=== PATIENT | male | born 1960 | race Caucasian/White ===

== ENCOUNTER 2017-12-22 18:47 | Inpatient (IN) | payer MEDICAID ==
[2017-12-22 18:48] VITALS: BMI 39.9
[2017-12-22] MEDS ORDERED: Iodixanol 320 MG/ML 100 ML BOTTLE IV ONE (18:59)
[2017-12-22 19:09] LABS: BASO # 0.1 K/uL (0.0-0.2); BASO % 0.6 % (0.0-2.0); EOS # 0.3 K/uL (0.0-0.7); EOS % 2.4 % (0.0-4.0); HEMOGLOBIN 12.5 g/dL (12.0-18.0); LYMPH # 4.5 K/uL (1.0-4.3); LYMPH % 36.5 % (20.0-40.0); MEAN CORPUSCULAR HEMOGLOBIN 28.8 pg (27.0-31.0); MEAN CORPUSCULAR HGB CONC 33.1 g/dL (33.0-37.0); MEAN PLATELET VOLUME 9.4 fL (7.2-11.7); MONO # 0.5 K/uL (0.0-0.8); MONO % 4.1 % (0.0-10.0); NEUT % 56.4 % (50.0-75.0); NRBC % 0.1 % (0.0-2.0); RBC 4.35 Mil/uL (4.40-5.90); RED CELL DISTRIBUTION WIDTH 16.1 % (11.5-14.5); WHITE BLOOD COUNT 12.3 K/uL (4.8-10.8)
[2017-12-22 19:16] LABS: INR 1.1; PROTHROMBIN TIME 11.9 SECONDS (9.7-12.2)
[2017-12-22 19:22] LABS: CALCIUM 8.6 mg/dl (8.6-10.4); GFR AFRICAN-AMERICAN > 60; GFR NON-AFRICAN AMERICAN 57; HDL CHOLESTEROL 45 mg/dL (30-70)
[2017-12-22 19:23] LABS: ALBUMIN 3.7 g/dL (3.5-5.0); ALT/SGPT 35 U/L (21-72); AST/SGOT 44 U/L (17-59); BLOOD UREA NITROGEN 21 mg/dL (9-20)
--- NOTE | 2017-12-22 19:30 | CT ---
EXAM: CT Head Without Intravenous Contrast EXAM DATE/TIME: 12/22/2017 6:53 PM CLINICAL HISTORY: 57 years old, male; Signs and symptoms; Numbness / parasthesia; Left; Additional info: Left facial numbness TECHNIQUE: Axial computed tomography images of the head/brain without intravenous contrast. All CT scans at this facility use one or more dose reduction techniques, viz.: automated exposure control; ma/kV adjustment per patient size (including targeted exams where dose is matched to indication; i.e. head); or iterative reconstruction technique. COMPARISON: There are no prior studies for comparison. FINDINGS: Brain: Ventricles are normal in size.. There is no midline shift. There is mild prominence of sulci and gyri. There is patchy decreased attenuation in periventricular white matter. There are no focal masses. There are no focal hemorrhages. Martin-white differentiation is visualized. Ventricles: See above. Bones: Cranial vault is intact. Soft tissues: unremarkable Sinuses: There is no acute sinusitis. Ears and mastoids: Middle ears and mastoids are unremarkable. Orbits: Orbital contents are unremarkable. IMPRESSION: No acute intracranial abnormality
[2017-12-22 19:32] LABS: LDL CHOLESTEROL 161 mg/dL (0-129)
--- NOTE | 2017-12-22 20:41 | C.PDOC ---
History Of Present Illness 57 year old male presents to the ED complaining of left-sided chest pain, on and off since 2AM last night, associated with sharp, shooting pain down his left shoulder, arm, and hand. Also complaining of left arm numbness with occasional left facial numbness. No focal weakness, slurred speech, confusion, difficulty ambulating, or visual changes. Patient reports fever with Tmax of 101 at home yesterday, with coughing and some difficulty breathing. Past medical history is significant for hypertension, diabetes and asthma. Patient reportedly had angina type chest pain 4 years ago and was prescribed Nitro at that time, however he denies history of heart attack to his knowledge. Patient took Nitro earlier as well as baby aspirin. PMD: provider TBD Time Seen by Provider: 12/22/17 19:02 Chief Complaint (Nursing): Chest Pain History Per: Patient History/Exam Limitations: no limitations Onset/Duration Of Symptoms: Hrs (since 2AM) Current Symptoms Are (Timing): Better Quality: Sharp Past Medical History Reviewed: Historical Data, Nursing Documentation, Vital Signs Vital Signs: Last Vital Signs Temp 97.9 F 12/22/17 23:40 Pulse 56 L 12/22/17 23:40 Resp 20 12/22/17 23:40 BP 111/74 12/22/17 23:40 Pulse Ox 97 12/22/17 23:40 - Medical History PMH: Asthma, COPD, Diabetes, HTN, Hypercholesterolemia Family History: States: No Known Family Hx - Social History Hx Alcohol Use: No Hx Substance Use: No Review Of Systems Except As Marked, All Systems Reviewed And Found Negative. Constitutional: Positive for: Fever Eyes: Negative for: Vision Change Cardiovascular: Positive for: Chest Pain Respiratory: Positive for: Cough, Shortness of Breath Musculoskeletal: Positive for: Arm Pain (left) Neurological: Positive for: Numbness (to left arm and face). Negative for: Weakness, Incoordination, Change in Speech, Headache, Dizziness Physical Exam - Physical Exam Appears: Non-toxic, No Acute Distress Skin: Normal Color, Warm, Dry Head: Atraumatic, Normacephalic Eye(s): bilateral: Normal Inspection, PERRL, EOMI Nose: Normal Oral Mucosa: Moist Neck: Normal ROM, Supple Chest: Symmetrical, No Tenderness Cardiovascular: Rhythm Regular (with regular rate, no ectopic beats noted), No Murmur, Other (S1,S2 within normal limits) Respiratory: Normal Breath Sounds, No Accessory Muscle Use, No Rales, No Rhonchi , No Wheezing Gastrointestinal/Abdominal: Soft, No Tenderness, No Distention Extremity: Bilateral: Atraumatic, No Pedal Edema, Normal ROM Neurological/Psych: Oriented x3, Normal Speech, Normal Cranial Nerves (CN 2-12 intact), Normal Motor (strength is 5/5 throughout), Normal Sensation, No Other ( focal deficits) Other Neurological Findings: No Facial Palsy Extremity: Right: No Drift, Left: No Drift ED Course And Treatment - Laboratory Results Result Diagrams: 12/22/17 19:05 12/22/17 19:05 Lab Interpretation: Normal ECG: Interpreted By Me, Viewed By Me ECG Rhythm: Sinus Rhythm (at 62 bpm, no acute ST/T wave changes, no ectopy) O2 Sat by Pulse Oximetry: 99 (RA) Pulse Ox Interpretation: Normal - CT Scan/US CT head Other Rad Studies (CT/US): Read By Radiologist, Radiology Report Reviewed CT/US Interpretation: FINDINGS: Brain: Ventricles are normal in size.. There is no midline shift. There is. mild prominence of sulci and gyri. There is patchy decreased attenuation in. periventricular white matter. There are no focal masses. There are no focal. hemorrhages. Martin-white differentiation is visualized. Ventricles: See above. Bones: Cranial vault is intact. Soft tissues: unremarkable. Sinuses: There is no acute sinusitis. Ears and mastoids: Middle ears and mastoids are unremarkable. Orbits: Orbital contents are unremarkable. . IMPRESSION: No acute intracranial abnormality NIHSS Stroke Scale - Date/Time Evaluation Performed Date Performed: 12/22/17 Time Performed: 19:00 When Was NIHSS Performed: Baseline - How Severe is the Stoke Level of Consciousness: 0=Alert LOC to Questions: 0=Both comments correct LOC to commands: 0=Obeys both correctly Best Gaze: 0=Normal Visual: 0=No visual loss Facial: 0=Normal Motor Arm - Left: 0=No drift Motor Arm - Right: 0=No drift Motor Leg - Left: 0=No drift Motor Leg - Right: 0=No drift Limb Ataxia: 0=Absent Sensory: 0=Normal Best Language: 0=No aphasia Dysarthia: 0=Normal articulation Extinction & Inattention (Neglect): 0=Normal, no object Score: 0 Severity Of Stroke: 0= No Stroke Medical Decision Making Medical Decision Making: Impression: Atypical chest pain Time: 18:53 Initial Plan: --EKG --Blood type and screen --Troponin I --Lipid panel --Hb a1c --CMP --CBC w/ differential --PTT --Prothrombin time --Chest x-ray --CT Head W/O contrast --Reevaluation Code Stroke was initially called, but cancelled. 20:45 Labs unremarkable, will admit for obs given risk factors. Discussed case w/ Dr. Silvio Barone, who accepts patient for admission Disposition Discussed With DrNieves: Francesca Barone Doctor Will See Patient In The: Hospital Counseled Patient/Family Regarding: Studies Performed, Diagnosis - Disposition Disposition: HOSPITALIZED Disposition Time: 20:47 Condition: FAIR - POA Core Measure Indicators: Chest Pain - Clinical Impression Clinical Impression: Chest pain - Scribe Statement The provider has reviewed the documentation as recorded by the Scribe (Jailyn Mayer) Provider Attestation: All medical record entries made by the Scribe were at my direction and personally dictated by me. I have reviewed the chart and agree that the record accurately reflects my personal performance of the history, physical exam, medical decision making, and the department course for this patient. I have also personally directed, reviewed, and agree with the discharge instructions and disposition. Decision To Admit - Pt Status Changed To: Hospital Disposition Of: Observation - . Bed Request Type: Telemetry Patient Diagnosis: Chest pain
--- NOTE | 2017-12-22 20:44 | C.PDOC ---
Time Seen by Provider: 12/22/17 19:02 Chief Complaint (Nursing): Chest Pain Past Medical History Vital Signs: Last Vital Signs Temp 98 F 12/22/17 20:28 Pulse 87 12/22/17 20:28 Resp 18 12/22/17 20:28 BP 145/86 12/22/17 20:28 Pulse Ox 99 12/22/17 20:28 - Medical History PMH: Asthma, COPD, Diabetes, HTN, Hypercholesterolemia - Social History Hx Alcohol Use: No Hx Substance Use: No ED Course And Treatment - Laboratory Results Result Diagrams: 12/22/17 19:05 12/22/17 19:05 O2 Sat by Pulse Oximetry: 99 Disposition - Disposition
[2017-12-22 21:52] VITALS: RESP 20
[2017-12-22] MEDS ORDERED: Sod Polystyrene Sulf 15 gm/60 ml Susp PO ONE (22:41)
[2017-12-23 03:39] LABS: CK-MB 0.43 ng/mL (0.0-3.38)
[2017-12-23] MEDS: Levothyroxine 88 MCG TAB PO SCH (06:29)
[2017-12-23] MEDS: (Novolog) Insulin Aspart, Recombinant 100 u/ml 10 ml vial SC SCH ×4 (07:42→22:40)
[2017-12-23 08:23] LABS: BASO # 0.1 K/uL (0.0-0.2); BASO % 0.9 % (0.0-2.0); EOS # 0.2 K/uL (0.0-0.7); EOS % 2.9 % (0.0-4.0); HEMOGLOBIN 11.5 g/dL (12.0-18.0); LYMPH # 2.8 K/uL (1.0-4.3); LYMPH % 36.5 % (20.0-40.0); MEAN CORPUSCULAR HEMOGLOBIN 28.8 pg (27.0-31.0); MEAN CORPUSCULAR HGB CONC 33.1 g/dL (33.0-37.0); MEAN PLATELET VOLUME 10.1 fL (7.2-11.7); MONO # 0.4 K/uL (0.0-0.8); MONO % 5.2 % (0.0-10.0); NEUT # 4.1 K/uL (1.8-7.0); NEUT % 54.5 % (50.0-75.0); NRBC % 0.1 % (0.0-2.0); RED CELL DISTRIBUTION WIDTH 15.9 % (11.5-14.5); WHITE BLOOD COUNT 7.6 K/uL (4.8-10.8)
[2017-12-23 08:44] LABS: ALBUMIN 3.1 g/dL (3.5-5.0); ALT/SGPT 31 U/L (21-72); AST/SGOT 32 U/L (17-59); BLOOD UREA NITROGEN 17 mg/dL (9-20); CALCIUM 8.3 mg/dl (8.6-10.4); GFR AFRICAN-AMERICAN > 60; GFR NON-AFRICAN AMERICAN > 60
--- NOTE | 2017-12-23 09:00 | RAD ---
HISTORY: Code Stroke COMPARISON: No prior. FINDINGS: LUNGS: No active pulmonary disease. PLEURA: No significant pleural effusion identified, no pneumothorax apparent. CARDIOVASCULAR: Normal. OSSEOUS STRUCTURES: No significant abnormalities. VISUALIZED UPPER ABDOMEN: Normal. OTHER FINDINGS: None. IMPRESSION: No active disease.
[2017-12-23] MEDS: Pantoprazole 40 mg EC Tab PO SCH (10:16)
[2017-12-23] MEDS: GlipiZIDE 10 mg SR Tab PO SCH (10:17)
[2017-12-23] MEDS: Enoxaparin 60 mg Syringe SC SCH (10:31)
--- NOTE | 2017-12-23 11:26 | CP.PCM.CON ---
<Ramon Thakur - Last Filed: 12/23/17 13:43> History of Present Illness - History of Present Illness History of Present Illness: PGY2 Cardiology Progress Note for Dr. Eddy This 57 year old male presents to the ED on 12/22/17 c/o L-sided chest pain, on and off since 2AM last night, associated with sharp, shooting pain down his left shoulder, arm, and hand. Also complaining of left arm numbness with occasional left facial numbness. No focal weakness, slurred speech, confusion, difficulty ambulating, or visual changes. Patient reports fever with Tmax of 101 at home yesterday, with coughing and some difficulty breathing. Past medical history is significant for hypertension, diabetes and asthma. Patient reportedly had angina type chest pain 4 years ago and was prescribed Nitro at that time, however he denies history of heart attack to his knowledge. Patient took Nitro earlier as well as baby aspirin. Cardiology consulted 2/2 chest pain. Patient seen and examined at bedside this AM. No acute distress. He admits to continued L chest pain with deep inspiration. He states his legs were swollen last night, although that has since resolved. He also notes that his legs intermitently swell when he walks half a block, and he takes HCTZ PRN for these symptoms. PMD: Dr. Gerardo PMH: Asthma, COPD, Diabetes, HTN, HLD, Hypothyroidism PSHx: denies Meds- see emr Famhx- Mom: DM, HTN; Dad: CVA; Brother: of [place] at 62yo Review of Systems: -Gen: denies fever, chills, headache, lethargy, weakness. -HEENT: denies dizziness, change in vision, change in hearing, sore throat, dysphagia, nasal congestion, mucous. -Cardio: denies chest pain, palpitations, orthopnea; +lower extremity edema -Resp: denies cough, dyspnea, hemoptysis, wheezing; +pain on inspiration. -GI: denies abdominal pain, nausea/vomiting, diarrhea/constipation, hematochezia , hematemesis. -: denies dysuria, urinary freq, incontinence, hematuria, change in urinary stream. -MSK: denies back pain, muscle weakness, radiating pain. -Skin: denies itching, rash, lesions. -Neuro: denies confusion, numbness, tingling, focal weakness, radicular pain, syncope. -Psych: denies anxiety, depression, H/I, S/I, hallucinations. Past Patient History - Past Social History Smoking Status: Unknown If Ever Smoked - CARDIAC Hx Hypercholesterolemia: Yes Hx Hypertension: Yes - PULMONARY Hx Asthma: Yes Hx Chronic Obstructive Pulmonary Disease (COPD): Yes - PSYCHIATRIC Hx Substance Use: No Meds Allergies/Adverse Reactions: Allergies Allergy/AdvReac Type Severity Reaction Status Date / Time No Known Allergies Allergy Verified 12/22/17 18:54 - Medications Medications: Current Medications Allopurinol (Zyloprim) 300 mg PO DAILY [facility] Last Admin: 12/23/17 10:16 Dose: 300 mg Amlodipine Besylate (Norvasc) 5 mg PO DAILY [facility] Last Admin: 12/23/17 10:18 Dose: 5 mg Aspirin (Aspirin) 325 mg PO DAILY [facility] Last Admin: 12/23/17 10:16 Dose: 325 mg Atenolol (Tenormin) 100 mg PO DAILY [facility] Last Admin: 12/23/17 10:16 Dose: 100 mg Clopidogrel Bisulfate (Plavix) 75 mg PO DAILY [facility] Last Admin: 12/23/17 10:16 Dose: 75 mg Ezetimibe (Zetia) 10 mg PO DAILY [facility] Last Admin: 12/23/17 10:16 Dose: 10 mg Enoxaparin Sodium (Lovenox) 40 mg SC DAILY [facility] Last Admin: 12/23/17 10:31 Dose: 40 mg Gemfibrozil (Lopid) 600 mg PO DAILY [facility] Last Admin: 12/23/17 10:16 Dose: 600 mg Glipizide (Glucotrol Xl) 10 mg PO DAILY [facility] Last Admin: 12/23/17 10:17 Dose: Not Given Insulin Aspart (Novolog) 0 unit SC [facility] PRN Reason: Protocol Last Admin: 12/23/17 07:42 Dose: Not Given Levothyroxine Sodium (Synthroid) 88 mcg PO DAILY@0630 [facility] Last Admin: 12/23/17 06:29 Dose: 88 mcg Loratadine (Claritin) 10 mg PO DAILY [facility] Last Admin: 12/23/17 10:16 Dose: 10 mg Losartan Potassium (Cozaar) 50 mg PO DAILY [facility] Last Admin: 12/23/17 10:16 Dose: 50 mg Metformin HCl (Glucophage) 1,000 mg PO BID [facility] Last Admin: 12/23/17 10:17 Dose: Not Given Montelukast Sodium (Singulair) 10 mg PO [facility] Pantoprazole Sodium (Protonix Ec Tab) 40 mg PO DAILY [facility] Last Admin: 12/23/17 10:16 Dose: 40 mg Physical Exam - Additional Findings Additional findings: Appears: Non-toxic, No Acute Distress Skin: Normal Color, Warm, Dry Head: Atraumatic, Normacephalic Eye(s): bilateral: Normal Inspection, PERRL, EOMI Nose: Normal Oral Mucosa: Moist Neck: Normal ROM, Supple Chest: Symmetrical, No Tenderness (to palpation), +L chest pain with deep inspiration Cardiovascular: Rhythm Regular (and regular rate), No Murmur, S1, S2 Respiratory: Normal Breath Sounds, No Accessory Muscle Use, No Rales, No Rhonchi , No Wheezing Gastrointestinal/Abdominal: Soft, No Tenderness, No Distention Extremity: Bilateral: Atraumatic, No Pedal Edema, Normal ROM Neurological/Psych: Oriented x3, Normal Speech, CN 2-12 intact, Normal Motor ( strength is 5/5 throughout) Results - Vital Signs Recent Vital Signs: Last Vital Signs Temp 98.1 F 12/23/17 07:30 Pulse 54 L 12/23/17 07:30 Resp 20 12/23/17 07:30 BP 114/68 12/23/17 07:30 Pulse Ox 98 12/23/17 07:30 - Labs Result Diagrams: 12/23/17 08:06 12/23/17 08:06 Labs: Laboratory Results - last 24 hr 12/22/17 12/22/17 12/22/17 19:05 19:05 19:05 WBC 12.3 H RBC 4.35 L Hgb 12.5 Hct 37.9 MCV 87.0 MCH 28.8 MCHC 33.1 RDW 16.1 H Plt Count 351 MPV 9.4 Neut % (Auto) 56.4 Lymph % (Auto) 36.5 [place] % (Auto) 4.1 Eos % (Auto) 2.4 Baso % (Auto) 0.6 Neut # (Auto) 7.0 Lymph # (Auto) 4.5 H [place] # (Auto) 0.5 Eos # (Auto) 0.3 Baso # (Auto) 0.1 PT 11.9 INR 1.1 APTT 34 Sodium 142 Potassium 5.6 H Chloride 109 H Carbon Dioxide 22 Anion Gap 17 BUN 21 H Creatinine 1.3 Est GFR ( Amer) > 60 Est GFR (Non-Af Amer) 57 POC Glucose (mg/dL) Random Glucose 95 Hemoglobin A1c Calcium 8.6 Total Bilirubin 0.6 AST 44 ALT 35 Alkaline Phosphatase 39 Total Creatine Kinase CK-MB (Mass) Troponin I < 0.0120 Total Protein 7.4 Albumin 3.7 Globulin 3.7 Albumin/Globulin Ratio 1.0 Triglycerides 231 H D Cholesterol 219 H LDL Cholesterol Direct 161 H HDL Cholesterol 45 Blood Type Antibody Screen 12/22/17 12/22/17 12/22/17 19:05 19:59 21:28 WBC RBC Hgb Hct MCV MCH MCHC RDW Plt Count MPV Neut % (Auto) Lymph % (Auto) [place] % (Auto) Eos % (Auto) Baso % (Auto) Neut # (Auto) Lymph # (Auto) [place] # (Auto) Eos # (Auto) Baso # (Auto) PT INR APTT Sodium Potassium Chloride Carbon Dioxide Anion Gap BUN Creatinine Est GFR ( Amer) Est GFR (Non-Af Amer) POC Glucose (mg/dL) 106 Random Glucose Hemoglobin A1c 6.4 Calcium Total Bilirubin AST ALT Alkaline Phosphatase Total Creatine Kinase CK-MB (Mass) Troponin I Total Protein Albumin Globulin Albumin/Globulin Ratio Triglycerides Cholesterol LDL Cholesterol Direct HDL Cholesterol Blood Type O POSITIVE Antibody Screen Negative 12/23/17 12/23/17 12/23/17 03:11 06:31 08:06 WBC 7.6 RBC 4.00 L Hgb 11.5 L Hct 34.8 L MCV 87.0 MCH 28.8 MCHC 33.1 RDW 15.9 H Plt Count 269 MPV 10.1 Neut % (Auto) 54.5 Lymph % (Auto) 36.5 [place] % (Auto) 5.2 Eos % (Auto) 2.9 Baso % (Auto) 0.9 Neut # (Auto) 4.1 Lymph # (Auto) 2.8 [place] # (Auto) 0.4 Eos # (Auto) 0.2 Baso # (Auto) 0.1 PT INR APTT Sodium Potassium Chloride Carbon Dioxide Anion Gap BUN Creatinine Est GFR ( Amer) Est GFR (Non-Af Amer) POC Glucose (mg/dL) 79 Random Glucose Hemoglobin A1c Calcium Total Bilirubin AST ALT Alkaline Phosphatase Total Creatine Kinase 31 L CK-MB (Mass) 0.43 Troponin I < 0.0120 Total Protein Albumin Globulin Albumin/Globulin Ratio Triglycerides Cholesterol LDL Cholesterol Direct HDL Cholesterol Blood Type Antibody Screen 12/23/17 08:06 WBC RBC Hgb Hct MCV MCH MCHC RDW Plt Count MPV Neut % (Auto) Lymph % (Auto) [place] % (Auto) Eos % (Auto) Baso % (Auto) Neut # (Auto) Lymph # (Auto) [place] # (Auto) Eos # (Auto) Baso # (Auto) PT INR APTT Sodium 141 Potassium 4.1 Chloride 108 H Carbon Dioxide 22 Anion Gap 15 BUN 17 Creatinine 1.2 Est GFR ( Amer) > 60 Est GFR (Non-Af Amer) > 60 POC Glucose (mg/dL) Random Glucose 140 H Hemoglobin A1c Calcium 8.3 L Total Bilirubin 0.1 L AST 32 ALT 31 Alkaline Phosphatase 45 Total Creatine Kinase CK-MB (Mass) Troponin I Total Protein 6.1 L Albumin 3.1 L Globulin 3.0 Albumin/Globulin Ratio 1.0 Triglycerides Cholesterol LDL Cholesterol Direct HDL Cholesterol Blood Type Antibody Screen Assessment & Plan - Assessment and Plan (Free Text) Assessment: Chest Pain 12/23: Lexiscan nuclear stress test in AM Echo in AM NPO after Midnight Neuro Consult, Dr. Matthew, f/u recs (family hx of CVA) troponins negative Head CT negative CXR negative Continue ASA, Atenolol, Losartan BP 114/68 HR 54 f/u EKG 2014 perfusion study performed for similar sx's, showing EF 66% with good exercise/work capacity. Case Discussed with Dr. Surjit Thakur, PGY2 - Date & Time Date: 12/23/17 Time: 11:21 <Caleb Eddy - Last Filed: 12/24/17 09:09> Meds - Medications Medications: Current Medications Albuterol (Ventolin Hfa 90 Mcg/Actuation (8 G)) 2 puff INH RQ4 PRN PRN Reason: Shortness of Breath Albuterol/Ipratropium (Duoneb 3 Mg/0.5 Mg (3 Ml) Ud) 3 ml INH RQ6 PRN PRN Reason: Shortness of Breath Last Admin: 12/24/17 08:18 Dose: 3 ml Allopurinol (Zyloprim) 300 mg PO DAILY [facility] Last Admin: 12/23/17 10:16 Dose: 300 mg Amlodipine Besylate (Norvasc) 5 mg PO DAILY [facility] Last Admin: 12/23/17 10:18 Dose: 5 mg Aspirin (Aspirin) 325 mg PO DAILY [facility] Last Admin: 12/23/17 10:16 Dose: 325 mg Atenolol (Tenormin) 100 mg PO DAILY [facility] Last Admin: 12/23/17 10:16 Dose: 100 mg Clopidogrel Bisulfate (Plavix) 75 mg PO DAILY [facility] Last Admin: 12/23/17 10:16 Dose: 75 mg Ezetimibe (Zetia) 10 mg PO DAILY [facility] Last Admin: 12/23/17 10:16 Dose: 10 mg Enoxaparin Sodium (Lovenox) 40 mg SC DAILY [facility] Last Admin: 12/23/17 10:31 Dose: 40 mg Gemfibrozil (Lopid) 600 mg PO DAILY [facility] Last Admin: 12/23/17 10:16 Dose: 600 mg Glipizide (Glucotrol Xl) 10 mg PO DAILY [facility] Last Admin: 12/23/17 10:17 Dose: Not Given Insulin Aspart (Novolog) 0 unit SC [facility] PRN Reason: Protocol Last Admin: 12/24/17 07:17 Dose: Not Given Levothyroxine Sodium (Synthroid) 88 mcg PO DAILY@0630 [facility] Last Admin: 12/24/17 06:37 Dose: 88 mcg Loratadine (Claritin) 10 mg PO DAILY [facility] Last Admin: 12/23/17 10:16 Dose: 10 mg Losartan Potassium (Cozaar) 50 mg PO DAILY [facility] Last Admin: 12/23/17 10:16 Dose: 50 mg Metformin HCl (Glucophage) 1,000 mg PO BID [facility] Last Admin: 12/23/17 18:20 Dose: 1,000 mg Montelukast Sodium (Singulair) 10 mg PO HS [facility] Last Admin: 12/23/17 22:04 Dose: 10 mg Pantoprazole Sodium (Protonix Ec Tab) 40 mg PO DAILY [facility] Last Admin: 12/23/17 10:16 Dose: 40 mg Fluticasone/Salmeterol (Advair Diskus 500/50) 1 puff INH RQ12 [facility] Last Admin: 12/24/17 08:18 Dose: Not Given Results - Vital Signs Recent Vital Signs: Last Vital Signs Temp 97.7 F 12/24/17 08:18 Pulse 56 L 12/24/17 08:18 Resp 20 12/24/17 08:18 BP 147/79 12/24/17 08:18 Pulse Ox 97 12/24/17 08:18 - Labs Result Diagrams: 12/24/17 07:14 12/24/17 07:14 Labs: Laboratory Results - last 24 hr 12/22/17 12/23/17 12/23/17 19:04 11:29 11:45 WBC RBC Hgb Hct MCV MCH MCHC RDW Plt Count MPV Neut % (Auto) Lymph % (Auto) [place] % (Auto) Eos % (Auto) Baso % (Auto) Neut # (Auto) Lymph # (Auto) [place] # (Auto) Eos # (Auto) Baso # (Auto) Sodium Potassium Chloride Carbon Dioxide Anion Gap BUN Creatinine Est GFR ( Amer) Est GFR (Non-Af Amer) POC Glucose (mg/dL) 95 88 Random Glucose Hemoglobin A1c Calcium Total Bilirubin AST ALT Alkaline Phosphatase Total Creatine Kinase 37 L CK-MB (Mass) 0.42 Troponin I < 0.0120 C-React Prot High Sens Total Protein Albumin Globulin Albumin/Globulin Ratio Triglycerides Cholesterol LDL Cholesterol Direct HDL Cholesterol Vitamin B12 Free T4 TSH 3rd Generation 12/23/17 12/23/17 12/24/17 17:12 21:18 06:28 WBC RBC Hgb Hct MCV MCH MCHC RDW Plt Count MPV Neut % (Auto) Lymph % (Auto) [place] % (Auto) Eos % (Auto) Baso % (Auto) Neut # (Auto) Lymph # (Auto) [place] # (Auto) Eos # (Auto) Baso # (Auto) Sodium Potassium Chloride Carbon Dioxide Anion Gap BUN Creatinine Est GFR ( Amer) Est GFR (Non-Af Amer) POC Glucose (mg/dL) 103 91 86 Random Glucose Hemoglobin A1c Calcium Total Bilirubin AST ALT Alkaline Phosphatase Total Creatine Kinase CK-MB (Mass) Troponin I C-React Prot High Sens Total Protein Albumin Globulin Albumin/Globulin Ratio Triglycerides Cholesterol LDL Cholesterol Direct HDL Cholesterol Vitamin B12 Free T4 TSH 3rd Generation 12/24/17 12/24/17 12/24/17 07:14 07:14 07:14 WBC 7.9 RBC 4.03 L Hgb 11.7 L Hct 35.0 MCV 86.8 MCH 29.0 MCHC 33.4 RDW 15.9 H Plt Count 275 MPV 9.7 Neut % (Auto) 57.4 Lymph % (Auto) 34.1 [place] % (Auto) 4.8 Eos % (Auto) 3.2 Baso % (Auto) 0.5 Neut # (Auto) 4.5 Lymph # (Auto) 2.7 [place] # (Auto) 0.4 Eos # (Auto) 0.2 Baso # (Auto) 0.0 Sodium 141 Potassium 4.0 Chloride 109 H Carbon Dioxide 23 Anion Gap 13 BUN 18 Creatinine 1.1 Est GFR ( Amer) > 60 Est GFR (Non-Af Amer) > 60 POC Glucose (mg/dL) Random Glucose 100 Hemoglobin A1c 6.4 Calcium 8.6 Total Bilirubin 0.2 AST 26 ALT 29 Alkaline Phosphatase 46 Total Creatine Kinase CK-MB (Mass) Troponin I C-React Prot High Sens Total Protein 6.1 L Albumin 3.1 L Globulin 3.0 Albumin/Globulin Ratio 1.0 Triglycerides 163 H D Cholesterol 160 LDL Cholesterol Direct 91 HDL Cholesterol 37 Vitamin B12 778 Free T4 TSH 3rd Generation 2.17 12/24/17 07:14 WBC RBC Hgb Hct MCV MCH MCHC RDW Plt Count MPV Neut % (Auto) Lymph % (Auto) [place] % (Auto) Eos % (Auto) Baso % (Auto) Neut # (Auto) Lymph # (Auto) [place] # (Auto) Eos # (Auto) Baso # (Auto) Sodium Potassium Chloride Carbon Dioxide Anion Gap BUN Creatinine Est GFR ( Amer) Est GFR (Non-Af Amer) POC Glucose (mg/dL) Random Glucose Hemoglobin A1c Calcium Total Bilirubin AST ALT Alkaline Phosphatase Total Creatine Kinase CK-MB (Mass) Troponin I C-React Prot High Sens 3.93 H Total Protein Albumin Globulin Albumin/Globulin Ratio Triglycerides Cholesterol LDL Cholesterol Direct HDL Cholesterol Vitamin B12 Free T4 1.00 TSH 3rd Generation Assessment & Plan - Assessment and Plan (Free Text) Assessment: Patient seen and personally evaluated by me. Plan of care d/w the resident and as documented
[2017-12-23 12:18] LABS: CK-MB 0.42 ng/mL (0.0-3.38)
--- NOTE | 2017-12-23 16:04 | CP.PCM.PN ---
Subjective - Date & Time of Evaluation Date of Evaluation: 12/23/17 Time of Evaluation: 16:01 - Subjective Subjective: Progress Note for Dr. Gerardo's Service Patient seen and examined at bedside. He states that he arrived to the hospital last night with c/o CP associated with numbness and tingling in the left arm and left side of the face. He states that it went away initially when he arrived at the hospital last night but continued to have episodic events throughout the night. He denies any symptoms currently. He denies focal weaknesses at any point. No slurred speech. He has a vague complaint of fevers but states that these have not been present for >24hrs. Objective - Vital Signs/Intake and Output Vital Signs (last 24 hours): Temp Pulse Resp BP Pulse Ox 98.1 F 56 L 20 114/68 98 12/23/17 07:30 12/23/17 15:55 12/23/17 07:30 12/23/17 07:30 12/23/17 07:30 - Medications Medications: Current Medications Albuterol/Ipratropium (Duoneb 3 Mg/0.5 Mg (3 Ml) Ud) 3 ml INH RQ6 PRN PRN Reason: Shortness of Breath Allopurinol (Zyloprim) 300 mg PO DAILY [facility] Last Admin: 12/23/17 10:16 Dose: 300 mg Amlodipine Besylate (Norvasc) 5 mg PO DAILY [facility] Last Admin: 12/23/17 10:18 Dose: 5 mg Aspirin (Aspirin) 325 mg PO DAILY [facility] Last Admin: 12/23/17 10:16 Dose: 325 mg Atenolol (Tenormin) 100 mg PO DAILY [facility] Last Admin: 12/23/17 10:16 Dose: 100 mg Clopidogrel Bisulfate (Plavix) 75 mg PO DAILY [facility] Last Admin: 12/23/17 10:16 Dose: 75 mg Ezetimibe (Zetia) 10 mg PO DAILY [facility] Last Admin: 12/23/17 10:16 Dose: 10 mg Enoxaparin Sodium (Lovenox) 40 mg SC DAILY [facility] Last Admin: 12/23/17 10:31 Dose: 40 mg Gemfibrozil (Lopid) 600 mg PO DAILY [facility] Last Admin: 12/23/17 10:16 Dose: 600 mg Glipizide (Glucotrol Xl) 10 mg PO DAILY [facility] Last Admin: 12/23/17 10:17 Dose: Not Given Insulin Aspart (Novolog) 0 unit SC ACHS [facility] PRN Reason: Protocol Last Admin: 12/23/17 12:18 Dose: Not Given Levothyroxine Sodium (Synthroid) 88 mcg PO DAILY@0630 [facility] Last Admin: 12/23/17 06:29 Dose: 88 mcg Loratadine (Claritin) 10 mg PO DAILY [facility] Last Admin: 12/23/17 10:16 Dose: 10 mg Losartan Potassium (Cozaar) 50 mg PO DAILY [facility] Last Admin: 12/23/17 10:16 Dose: 50 mg Metformin HCl (Glucophage) 1,000 mg PO BID [facility] Last Admin: 12/23/17 10:17 Dose: Not Given Montelukast Sodium (Singulair) 10 mg PO [facility] Pantoprazole Sodium (Protonix Ec Tab) 40 mg PO DAILY [facility] Last Admin: 12/23/17 10:16 Dose: 40 mg - Labs Labs: 12/23/17 08:06 12/23/17 08:06 PT 11.9 SECONDS (9.7-12.2) 12/22/17 19:05 INR 1.1 12/22/17 19:05 APTT 34 SECONDS (21-34) 12/22/17 19:05 - Constitutional Appears: No Acute Distress - Head Exam Head Exam: ATRAUMATIC, NORMOCEPHALIC - Eye Exam Eye Exam: EOMI, Normal appearance - ENT Exam ENT Exam: Mucous Membranes Moist - Respiratory Exam Respiratory Exam: Clear to Ausculation Bilateral, NORMAL BREATHING PATTERN - Cardiovascular Exam Cardiovascular Exam: REGULAR RHYTHM, +S1, +S2 - GI/Abdominal Exam GI & Abdominal Exam: Soft. absent: Tenderness - Extremities Exam Extremities Exam: absent: Calf Tenderness, Pedal Edema - Neurological Exam Neurological Exam: Alert, Awake, Oriented x3 - Psychiatric Exam Psychiatric exam: Normal Affect, Normal Mood - Skin Skin Exam: Dry, Warm Assessment and Plan - Assessment and Plan (Free Text) Plan: Chest Pain Cardio consult place- Dr. Eddy- Micaela appreciated Lexiscan nuclear stress test in AM Echo in AM NPO after Midnight Neuro Consult requested by Dr. Eddy for Dr. Matthew given risk factor of family hx of CVA Echo 01/2017- LVEF 70% Exercise stress 01/2017- pt unable to complete due to fatigue Holter monitor 01/2017- sinus rhythm Trops negative x3 EKG prelim reading is NSR; no acute ST changes- follow up official read Head CT negative CXR no acute changes ASA 325mg PO daily Atenolol 100mg PO daily Losartan 50mg PO daily Amlodipine 5mg PO daily Plavix 75mg PO daily HTN Atenolol 100mg PO daily Losartan 50mg PO daily Amlodipine 5mg PO daily Mixed dyslipidemia Zetia 10mg PO daily Gemfibrozil 600mg PO daily follow up lipid panel Diabetes Glipizide 10mg PO daily ISS metformin 1g PO BID Singulair 10mg PO qhs follow up A1C Hypothyroidism levothyroxine 88mcg PO daily Follow up tsh/t4 Asthma Loratadine 10mg PO daily PPX Lovenox 40mg SC daily Protonix 40mg PO daily Case discussed with Dr. Gerardo All management as per Dr. Gerardo
--- NOTE | 2017-12-23 18:42 | CARD ---
APPROVED REPORT EXAM: Two-dimensional and M-mode echocardiogram with Doppler and color Doppler. Other Information Quality : GoodRhythm : INDICATION Chest Pain 2D DIMENSIONS IVSd1.2 (0.7-1.1cm)LVDd4.4 (3.9-5.9cm) PWd1.2 (0.7-1.1cm)LVDs2.9 (2.5-4.0cm) FS (%) 34.6 %LVEF (%)64.0 (>50%) M-Mode DIMENSIONS RVDd2.56 (2.1-3.2cm)Left Atrium (MM)4.05 (2.5-4.0cm) IVSd1.26 (0.7-1.1cm)Aortic Root3.07 (2.2-3.7cm) LVDd5.16 (4.0-5.6cm)Aortic Cusp Exc.2.09 (1.5-2.0cm) PWd1.00 (0.7-1.1cm)FS (%) 42 % LVDs2.99 (2.0-3.8cm)LVEF (%)73 (>50%) Mitral Valve MV E Lvhriuim08.8cm/sMV A Lmrhuaqd53.4cm/sE/A ratio0.9 TDI E/Lateral E'0.0E/Medial E'0.0 Tricuspid Valve TR Peak Cpoifdod728qa/sTR Peak Gr.[id number] LEFT VENTRICLE The left ventricle is normal size. There is normal left ventricular wall thickness. The left ventricular function is normal. The left ventricular ejection fraction is within the normal range. About 65% No regional wall motion abnormalities noted. The left ventricular diastolic function is indetermiate. No left ventricle thrombus noted on this study. There is no ventricular septal defect visualized. There is no left ventricular aneurysm. There is no mass noted in the left ventricle. RIGHT VENTRICLE The right ventricle is normal size. There is normal right ventricular wall thickness. The right ventricular systolic function is normal. ATRIA The left atrium size is normal. The right atrium size is normal. The interatrial septum is intact with no evidence for an atrial septal defect. AORTIC VALVE The aortic valve is normal in structure and function. No aortic regurgitation is present. There is no aortic valvular stenosis. There is no aortic valvular vegetation. MITRAL VALVE The mitral valve is normal in structure and function. There is no evidence of mitral valve prolapse. There is no mitral valve stenosis. There is no mitral valve regurgitation noted. TRICUSPID VALVE The tricuspid valve is normal in structure and function. There is mild tricuspid valve regurgitation noted. Estimated PA systolic pressure is 39 mm Hg. There is no tricuspid valve prolapse or vegetation. There is no tricuspid valve stenosis. PULMONIC VALVE The pulmonary valve is normal in structure and function. There is no pulmonic valvular regurgitation. There is no pulmonic valvular stenosis. GREAT VESSELS The aortic root is normal in size. The ascending aorta is normal in size. The pulmonary artery is normal. The IVC is normal in size and collapses >50% with inspiration. PERICARDIAL EFFUSION The pericardium appears normal. There is no pleural effusion. <Conclusion> Normal LV systolic function and wall motion. Mild pulmonary HTN. Normal Doppler.
--- NOTE | 2017-12-23 18:54 | CP.PCM.CON ---
History of Present Illness - History of Present Illness History of Present Illness: CONSULT IS DICTATED TRANSIENT RIGHT CORTICAL DYSFUNCTION NON FOCAL EXAM PERIPHERAL NEUROPAHTY SEVERE RISK FACTORS FOR STROKE / [place]/ MULUGETA CONTINUE THE PRESENT MANAGEMENT EXTENDED DISCUSSION WITH HIM AND HIS Past Patient History - Past Social History Smoking Status: Unknown If Ever Smoked - CARDIAC Hx Hypercholesterolemia: Yes Hx Hypertension: Yes - PULMONARY Hx Asthma: Yes Hx Chronic Obstructive Pulmonary Disease (COPD): Yes - PSYCHIATRIC Hx Substance Use: No Meds Allergies/Adverse Reactions: Allergies Allergy/AdvReac Type Severity Reaction Status Date / Time No Known Allergies Allergy Verified 12/22/17 18:54 - Medications Medications: Current Medications Albuterol/Ipratropium (Duoneb 3 Mg/0.5 Mg (3 Ml) Ud) 3 ml INH RQ6 PRN PRN Reason: Shortness of Breath Allopurinol (Zyloprim) 300 mg PO DAILY [facility] Last Admin: 12/23/17 10:16 Dose: 300 mg Amlodipine Besylate (Norvasc) 5 mg PO DAILY [facility] Last Admin: 12/23/17 10:18 Dose: 5 mg Aspirin (Aspirin) 325 mg PO DAILY [facility] Last Admin: 12/23/17 10:16 Dose: 325 mg Atenolol (Tenormin) 100 mg PO DAILY [facility] Last Admin: 12/23/17 10:16 Dose: 100 mg Clopidogrel Bisulfate (Plavix) 75 mg PO DAILY [facility] Last Admin: 12/23/17 10:16 Dose: 75 mg Ezetimibe (Zetia) 10 mg PO DAILY [facility] Last Admin: 12/23/17 10:16 Dose: 10 mg Enoxaparin Sodium (Lovenox) 40 mg SC DAILY [facility] Last Admin: 12/23/17 10:31 Dose: 40 mg Gemfibrozil (Lopid) 600 mg PO DAILY [facility] Last Admin: 12/23/17 10:16 Dose: 600 mg Glipizide (Glucotrol Xl) 10 mg PO DAILY [facility] Last Admin: 12/23/17 10:17 Dose: Not Given Insulin Aspart (Novolog) 0 unit SC [facility] PRN Reason: Protocol Last Admin: 12/23/17 17:30 Dose: Not Given Levothyroxine Sodium (Synthroid) 88 mcg PO DAILY@0630 [facility] Last Admin: 12/23/17 06:29 Dose: 88 mcg Loratadine (Claritin) 10 mg PO DAILY [facility] Last Admin: 12/23/17 10:16 Dose: 10 mg Losartan Potassium (Cozaar) 50 mg PO DAILY [facility] Last Admin: 12/23/17 10:16 Dose: 50 mg Metformin HCl (Glucophage) 1,000 mg PO BID [facility] Last Admin: 12/23/17 18:20 Dose: 1,000 mg Montelukast Sodium (Singulair) 10 mg PO [facility] Pantoprazole Sodium (Protonix Ec Tab) 40 mg PO DAILY [facility] Last Admin: 12/23/17 10:16 Dose: 40 mg Results - Vital Signs Recent Vital Signs: Last Vital Signs Temp 98.1 F 12/23/17 07:30 Pulse 56 L 12/23/17 15:55 Resp 20 12/23/17 07:30 BP 114/68 12/23/17 07:30 Pulse Ox 98 12/23/17 07:30 - Labs Result Diagrams: 12/23/17 08:06 12/23/17 08:06 Labs: Laboratory Results - last 24 hr 12/22/17 12/22/17 12/22/17 19:04 19:05 19:05 WBC 12.3 H RBC 4.35 L Hgb 12.5 Hct 37.9 MCV 87.0 MCH 28.8 MCHC 33.1 RDW 16.1 H Plt Count 351 MPV 9.4 Neut % (Auto) 56.4 Lymph % (Auto) 36.5 Maries % (Auto) 4.1 Eos % (Auto) 2.4 Baso % (Auto) 0.6 Neut # (Auto) 7.0 Lymph # (Auto) 4.5 H Maries # (Auto) 0.5 Eos # (Auto) 0.3 Baso # (Auto) 0.1 PT 11.9 INR 1.1 APTT 34 Sodium Potassium Chloride Carbon Dioxide Anion Gap BUN Creatinine Est GFR ( Amer) Est GFR (Non-Af Amer) POC Glucose (mg/dL) 95 Random Glucose Hemoglobin A1c Calcium Total Bilirubin AST ALT Alkaline Phosphatase Total Creatine Kinase CK-MB (Mass) Troponin I Total Protein Albumin Globulin Albumin/Globulin Ratio Triglycerides Cholesterol LDL Cholesterol Direct HDL Cholesterol Blood Type Antibody Screen 12/22/17 12/22/17 12/22/17 19:05 19:05 19:59 WBC RBC Hgb Hct MCV MCH MCHC RDW Plt Count MPV Neut % (Auto) Lymph % (Auto) Maries % (Auto) Eos % (Auto) Baso % (Auto) Neut # (Auto) Lymph # (Auto) Maries # (Auto) Eos # (Auto) Baso # (Auto) PT INR APTT Sodium 142 Potassium 5.6 H Chloride 109 H Carbon Dioxide 22 Anion Gap 17 BUN 21 H Creatinine 1.3 Est GFR ( Amer) > 60 Est GFR (Non-Af Amer) 57 POC Glucose (mg/dL) Random Glucose 95 Hemoglobin A1c 6.4 Calcium 8.6 Total Bilirubin 0.6 AST 44 ALT 35 Alkaline Phosphatase 39 Total Creatine Kinase CK-MB (Mass) Troponin I < 0.0120 Total Protein 7.4 Albumin 3.7 Globulin 3.7 Albumin/Globulin Ratio 1.0 Triglycerides 231 H D Cholesterol 219 H LDL Cholesterol Direct 161 H HDL Cholesterol 45 Blood Type O POSITIVE Antibody Screen Negative 12/22/17 12/23/17 12/23/17 21:28 03:11 06:31 WBC RBC Hgb Hct MCV MCH MCHC RDW Plt Count MPV Neut % (Auto) Lymph % (Auto) Maries % (Auto) Eos % (Auto) Baso % (Auto) Neut # (Auto) Lymph # (Auto) Maries # (Auto) Eos # (Auto) Baso # (Auto) PT INR APTT Sodium Potassium Chloride Carbon Dioxide Anion Gap BUN Creatinine Est GFR ( Amer) Est GFR (Non-Af Amer) POC Glucose (mg/dL) 106 79 Random Glucose Hemoglobin A1c Calcium Total Bilirubin AST ALT Alkaline Phosphatase Total Creatine Kinase 31 L CK-MB (Mass) 0.43 Troponin I < 0.0120 Total Protein Albumin Globulin Albumin/Globulin Ratio Triglycerides Cholesterol LDL Cholesterol Direct HDL Cholesterol Blood Type Antibody Screen 12/23/17 12/23/17 12/23/17 08:06 08:06 11:29 WBC 7.6 RBC 4.00 L Hgb 11.5 L Hct 34.8 L MCV 87.0 MCH 28.8 MCHC 33.1 RDW 15.9 H Plt Count 269 MPV 10.1 Neut % (Auto) 54.5 Lymph % (Auto) 36.5 Maries % (Auto) 5.2 Eos % (Auto) 2.9 Baso % (Auto) 0.9 Neut # (Auto) 4.1 Lymph # (Auto) 2.8 Maries # (Auto) 0.4 Eos # (Auto) 0.2 Baso # (Auto) 0.1 PT INR APTT Sodium 141 Potassium 4.1 Chloride 108 H Carbon Dioxide 22 Anion Gap 15 BUN 17 Creatinine 1.2 Est GFR ( Amer) > 60 Est GFR (Non-Af Amer) > 60 POC Glucose (mg/dL) 88 Random Glucose 140 H Hemoglobin A1c Calcium 8.3 L Total Bilirubin 0.1 L AST 32 ALT 31 Alkaline Phosphatase 45 Total Creatine Kinase CK-MB (Mass) Troponin I Total Protein 6.1 L Albumin 3.1 L Globulin 3.0 Albumin/Globulin Ratio 1.0 Triglycerides Cholesterol LDL Cholesterol Direct HDL Cholesterol Blood Type Antibody Screen 12/23/17 12/23/17 11:45 17:12 WBC RBC Hgb Hct MCV MCH MCHC RDW Plt Count MPV Neut % (Auto) Lymph % (Auto) Maries % (Auto) Eos % (Auto) Baso % (Auto) Neut # (Auto) Lymph # (Auto) Maries # (Auto) Eos # (Auto) Baso # (Auto) PT INR APTT Sodium Potassium Chloride Carbon Dioxide Anion Gap BUN Creatinine Est GFR ( Amer) Est GFR (Non-Af Amer) POC Glucose (mg/dL) 103 Random Glucose Hemoglobin A1c Calcium Total Bilirubin AST ALT Alkaline Phosphatase Total Creatine Kinase 37 L CK-MB (Mass) 0.42 Troponin I < 0.0120 Total Protein Albumin Globulin Albumin/Globulin Ratio Triglycerides Cholesterol LDL Cholesterol Direct HDL Cholesterol Blood Type Antibody Screen
[2017-12-23] MEDS: Albuterol-Ipratrop 3 mg / 0.5 (3 ml) UD INH PRN (19:26)
[2017-12-23] MEDS ORDERED: Albuterol HFA 90 mcg/actuation (8 g) INH PRN (21:23)
--- NOTE | 2017-12-24 04:58 | CON ---
DATE: ATTENDING PHYSICIAN: Bernardo Barone MD. LOCATION: The patient is in room #668, bed A. REASON FOR CONSULTATION: Possible transient ischemic attack. The patient was brought in to [facility] as per his 's recommendation because of his left-sided facial numbness, weakness and chest pain. From neurological point of view, I was called in to evaluate him for further management. HISTORY OF PRESENT ILLNESS: Mr. Roya Alexis is a 57-year-old moderately obese right-handed Pakistani male woke up on Friday morning around 3 o'clock with leg swelling, left-sided chest pain, left arm numbness and facial numbness. He ignored these symptoms; however, he slept back. During the day, he felt discomfort. At that time, his arrived, he was unusually lying down. He was explaining the symptoms what he went through. immediately made arrangements to bring him to [facility] for further management. During this episode, the patient did not have any visual or bulbar dysfunction. No history of involuntary movements. At present, he does not have any complaints. PAST MEDICAL HISTORY: Hypertension, coronary artery disease status post stent 4 years ago, hypothyroidism, dyslipidemia, [id number] diabetes mellitus. PERSONAL HISTORY: He denies smoking or alcohol use. ALLERGIES: NO KNOWN ALLERGIES. REVIEW OF SYSTEMS: A 12-point system has been reviewed from neuro, left-sided numbness. MEDICATIONS: Aspirin, Claritin, Cozaar, Glucophage, Glucotrol, Lopid, Lovenox, Norvasc, NovoLog and Plavix. PHYSICAL EXAMINATION: VITAL SIGNS: Blood pressure 114/68, mean artery pressure of 83, respiratory rate 16, temperature afebrile. NECK: Supple. No carotid bruits. HEART: Sounds regular. CHEST: Fair air entry. EXTREMITIES: No edema in legs. NEUROLOGICAL: Mental status examination: He is awake, alert, oriented to person, place and time. The patient is examined in the presence of his . Cranial nerve examination, visual field intact. Pupils reactive to light. Extraocular movements normal. No nystagmus. No facial sensory deficit. No facial asymmetry. Hearing is normal. Tongue is midline. Good gag. Motor examination of his outstretched hands with eyes closed, no drift noted. Power is symmetric on either side. Deep tendon reflexes are absent. Plantars are downgoing. Sensory examination, significant bilateral distal sensory motor neuropathy. No cortical sensory loss. Coordination, [id number] test is intact. Gait is deferred at this time. WORKUP: CT of the head reviewed shows some patchy decreased attenuation in periventricular white matter region. EKG normal sinus rhythm. BLOOD WORKUP: WBC 7.6, hemoglobin 11.5, hematocrit 34.8, platelet 269. Sodium 141, potassium 4.1, chloride 108, bicarbonate 22, BUN 17, creatinine 1.3, GFR more than 60, glucose 103. CONCLUSION: Mr. Roya Alexis has been presenting as per neurological examination with; 1. Possible right cortical dysfunction manifested with left arm and left leg numbness including his face. This is probably secondary to his multiple risk factors including obesity, hypertension, dyslipidemia, hypothyroidism, coronary artery disease and possible hidden sleep related breathing disorders. 2. 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 RECOMMENDATIONS: 1. Continue antiplatelets, statin and angiotensin receptor blockers. 2. Diet control, weight control and diabetic control had been discussed with the patient. 3. The patient should have electroencephalogram, carotid Doppler, MRA of the brain and echocardiogram to rule out stroke process versus abnormal electrical activities just possible seizures. 4. The patient's condition has been discussed. The patient agreed with my recommendation. Cristóbal Rodas MD
[2017-12-24] MEDS: Levothyroxine 88 MCG TAB PO SCH (06:37)
[2017-12-24] MEDS: (Novolog) Insulin Aspart, Recombinant 100 u/ml 10 ml vial SC SCH ×4 (07:17→21:58)
[2017-12-24 07:26] LABS: BASO % 0.5 % (0.0-2.0); EOS # 0.2 K/uL (0.0-0.7); EOS % 3.2 % (0.0-4.0); HEMOGLOBIN 11.7 g/dL (12.0-18.0); LYMPH # 2.7 K/uL (1.0-4.3); LYMPH % 34.1 % (20.0-40.0); MEAN CELL VOLUME 86.8 fL (80.0-94.0); MEAN CORPUSCULAR HGB CONC 33.4 g/dL (33.0-37.0); MEAN PLATELET VOLUME 9.7 fL (7.2-11.7); MONO # 0.4 K/uL (0.0-0.8); MONO % 4.8 % (0.0-10.0); NEUT # 4.5 K/uL (1.8-7.0); NEUT % 57.4 % (50.0-75.0); NRBC % 0.1 % (0.0-2.0); RBC 4.03 Mil/uL (4.40-5.90); RED CELL DISTRIBUTION WIDTH 15.9 % (11.5-14.5); WHITE BLOOD COUNT 7.9 K/uL (4.8-10.8)
[2017-12-24 07:43] LABS: ALBUMIN 3.1 g/dL (3.5-5.0); ALT/SGPT 29 U/L (21-72); AST/SGOT 26 U/L (17-59); BLOOD UREA NITROGEN 18 mg/dL (9-20); CALCIUM 8.6 mg/dl (8.6-10.4); GFR AFRICAN-AMERICAN > 60; GFR NON-AFRICAN AMERICAN > 60; HDL CHOLESTEROL 37 mg/dL (30-70)
[2017-12-24] MEDS ORDERED: Aminophylline 25 mg/ml Inj ONE (07:48)
[2017-12-24 07:54] LABS: LDL CHOLESTEROL 91 mg/dL (0-129)
[2017-12-24] MEDS: Fluticasone-Salmeterol 500-50mcg Diskus INH SCH ×2 (08:18→19:39)
[2017-12-24] MEDS: Albuterol-Ipratrop 3 mg / 0.5 (3 ml) UD INH PRN ×3 (08:18→19:39)
--- NOTE | 2017-12-24 09:11 | CP.PCM.PN ---
Subjective - Date & Time of Evaluation Date of Evaluation: 12/24/17 Time of Evaluation: 07:10 - Subjective Subjective: PGY-[address] Gerardo Patient seen and examined at bedside. No acute events reported overnight. Patient states his chest pain resolved and feeling fine. Patient requests for a lower back MRI for his chronic back pain. I explained to the patient that we should address emergent issues first and MRI for chronic back pain can be arranged outpatient. Patient denies fever, chills, headache, shortness of breath , abdominal pain, urinary or bowel habit changes. Objective - Vital Signs/Intake and Output Vital Signs (last 24 hours): Temp Pulse Resp BP Pulse Ox 97.7 F 56 L 20 147/79 97 12/24/17 08:18 12/24/17 08:18 12/24/17 08:18 12/24/17 08:18 12/24/17 08:18 - Medications Medications: Current Medications Albuterol (Ventolin Hfa 90 Mcg/Actuation (8 G)) 2 puff INH RQ4 PRN PRN Reason: Shortness of Breath Albuterol/Ipratropium (Duoneb 3 Mg/0.5 Mg (3 Ml) Ud) 3 ml INH RQ6 PRN PRN Reason: Shortness of Breath Last Admin: 12/24/17 08:18 Dose: 3 ml Allopurinol (Zyloprim) 300 mg PO DAILY [facility] Last Admin: 12/23/17 10:16 Dose: 300 mg Amlodipine Besylate (Norvasc) 5 mg PO DAILY [facility] Last Admin: 12/23/17 10:18 Dose: 5 mg Aspirin (Aspirin) 325 mg PO DAILY [facility] Last Admin: 12/23/17 10:16 Dose: 325 mg Atenolol (Tenormin) 100 mg PO DAILY [facility] Last Admin: 12/23/17 10:16 Dose: 100 mg Clopidogrel Bisulfate (Plavix) 75 mg PO DAILY [facility] Last Admin: 12/23/17 10:16 Dose: 75 mg Ezetimibe (Zetia) 10 mg PO DAILY [facility] Last Admin: 12/23/17 10:16 Dose: 10 mg Enoxaparin Sodium (Lovenox) 40 mg SC DAILY [facility] Last Admin: 12/23/17 10:31 Dose: 40 mg Gemfibrozil (Lopid) 600 mg PO DAILY [facility] Last Admin: 12/23/17 10:16 Dose: 600 mg Glipizide (Glucotrol Xl) 10 mg PO DAILY [facility] Last Admin: 12/23/17 10:17 Dose: Not Given Insulin Aspart (Novolog) 0 unit SC ACHS [facility] PRN Reason: Protocol Last Admin: 12/24/17 07:17 Dose: Not Given Levothyroxine Sodium (Synthroid) 88 mcg PO DAILY@0630 [facility] Last Admin: 12/24/17 06:37 Dose: 88 mcg Loratadine (Claritin) 10 mg PO DAILY [facility] Last Admin: 12/23/17 10:16 Dose: 10 mg Losartan Potassium (Cozaar) 50 mg PO DAILY [facility] Last Admin: 12/23/17 10:16 Dose: 50 mg Metformin HCl (Glucophage) 1,000 mg PO BID [facility] Last Admin: 12/23/17 18:20 Dose: 1,000 mg Montelukast Sodium (Singulair) 10 mg PO HS [facility] Last Admin: 12/23/17 22:04 Dose: 10 mg Pantoprazole Sodium (Protonix Ec Tab) 40 mg PO DAILY [facility] Last Admin: 12/23/17 10:16 Dose: 40 mg Fluticasone/Salmeterol (Advair Diskus 500/50) 1 puff INH RQ12 [facility] Last Admin: 12/24/17 08:18 Dose: Not Given - Labs Labs: 12/24/17 07:14 12/24/17 07:14 PT 11.9 SECONDS (9.7-12.2) 12/22/17 19:05 INR 1.1 12/22/17 19:05 APTT 34 SECONDS (21-34) 12/22/17 19:05 - Constitutional Appears: Non-toxic, No Acute Distress - Head Exam Head Exam: ATRAUMATIC, NORMAL INSPECTION - Eye Exam Eye Exam: EOMI, Normal appearance - ENT Exam ENT Exam: Mucous Membranes Moist - Neck Exam Neck Exam: Normal Inspection - Respiratory Exam Respiratory Exam: Clear to Ausculation Bilateral, NORMAL BREATHING PATTERN. absent: Respiratory Distress - Cardiovascular Exam Cardiovascular Exam: REGULAR RHYTHM, +S1, +S2. absent: Murmur - GI/Abdominal Exam GI & Abdominal Exam: Soft, Normal Bowel Sounds. absent: Tenderness - Extremities Exam Extremities Exam: Normal Inspection. absent: Tenderness - Neurological Exam Neurological Exam: Alert, Awake, Oriented x3 Neuro motor strength exam: Left Upper Extremity: 5, Right Upper Extremity: 5, Left Lower Extremity: 5, Right Lower Extremity: 5 Additional comments: upper and lower extremities strength equal on both sides, no facial asymmetry, no slurred speech appreciated - Psychiatric Exam Psychiatric exam: Normal Affect, Normal Mood - Skin Skin Exam: Dry, Warm Assessment and Plan - Assessment and Plan (Free Text) Assessment: Chest Pain Cardio consult place- Dr. Eddy- Recdolly appreciated Lexiscan nuclear stress test in AM NPO after Midnight Neuro Consult requested by Dr. Eddy for Dr. Matthew given risk factor of family hx of CVA Pending MRI, EEG and carotid doppler Echo 01/2017- LVEF 70%, 12/23/17-normal LV systolic function and wall motion, mild pulmonary HTN Exercise stress 01/2017- pt unable to complete due to fatigue Holter monitor 01/2017- sinus rhythm Trops negative x3 EKG prelim reading is NSR; no acute ST changes- follow up official read Head CT negative CXR no acute changes ASA 325mg PO daily Atenolol 100mg PO daily Losartan 50mg PO daily Amlodipine 5mg PO daily Plavix 75mg PO daily HTN Atenolol 100mg PO daily Losartan 50mg PO daily Amlodipine 5mg PO daily Mixed dyslipidemia Zetia 10mg PO daily Gemfibrozil 600mg PO daily follow up lipid panel Diabetes Glipizide 10mg PO daily ISS metformin 1g PO BID Singulair 10mg PO qhs follow up A1C Hypothyroidism levothyroxine 88mcg PO daily Follow up tsh/t4 Asthma Loratadine 10mg PO daily PPX Lovenox 40mg SC daily Protonix 40mg PO daily Case discussed with Dr. Gerardo All management as per Dr. Gerardo
[2017-12-24] MEDS: Pantoprazole 40 mg EC Tab PO SCH (12:22)
[2017-12-24] MEDS: GlipiZIDE 10 mg SR Tab PO SCH (12:23)
[2017-12-24] MEDS: Enoxaparin 60 mg Syringe SC SCH (12:23)
--- NOTE | 2017-12-24 15:51 | CT ---
PROCEDURE: CT HEAD WITHOUT CONTRAST. HISTORY: r/o stroke COMPARISON: 12/22/2017 TECHNIQUE: Axial computed tomography images were obtained through the head/brain without intravenous contrast. Radiation dose: Total exam DLP = 927.50 mGy-cm. This CT exam was performed using one or more of the following dose reduction techniques: Automated exposure control, adjustment of the mA and/or kV according to patient size, and/or use of iterative reconstruction technique. FINDINGS: HEMORRHAGE: No intracranial hemorrhage. BRAIN: No mass effect or edema. Minimal diffuse cerebral atrophy. Minimal periventricular white matter lucency consistent with chronic microvascular ischemic change. No evidence of acute infarct. VENTRICLES: Unremarkable. No hydrocephalus. CALVARIUM: Unremarkable. PARANASAL SINUSES: Unremarkable as visualized. No significant inflammatory changes. MASTOID AIR CELLS: Unremarkable as visualized. No inflammatory changes. OTHER FINDINGS: None. IMPRESSION: No intracranial mass, hemorrhage or evidence of acute infarct. Mild chronic involutional change.
--- NOTE | 2017-12-24 18:37 | CARD ---
APPROVED REPORT Protocol: LEXISCAN Test Type: LEXISCAN STRESS Test Indications: CHEST PAIN Target HR: 165 bpm Resting ECG: normal Resting Heart Rate: 70 bpm Resting Blood Pressure: 134/80mmHg submaximum (85%): 140 bpm TEST SUMMARY [id number]:01..1.064/.0. PREINFSNHYPERV.24:560.00.01.955017/80.0. INFUSIONDOSE 100:300.00.01.061/.0. ECRIMCCGO67:210.00..553451/80.0. PROCEDURE Pharmacologic stress testing was performed using 0.4mg per 5ml of regadenoson given intravenously over 7-10 seconds. POST EXERCISE Reason for Termination: Protocol Completed Target HR: No Max HR: 61 bpm 62% of Maximum Predicted HR: 165 bpm Exercise duration: 00:30 min:sec, 0 Stage Exercise capacity: 1.0METs Max Blood Pressure: 134/80mmHg Blood Pressure response to exercise: normal resting BP - appropriate response Heart Rate response to exercise: appropriate Chest Pain: Yes, felt chest pressure and dyspnea Angina index: 0 Arrhythmia: No, none ST Change: No, none Deviation: 0 mm INTERPRETATION Stress EKG Conclusion: Nuclear images to follow EXAM: Myocardial Perfusion REST/STRESS Imaging Protocol The imaging protocol used to acquire images was Rest Tc-99m/stress Tc-99m 2 day Rest Spect myocardial perfusion imaging was performed in supine position 45 minutes following the injection of 32.9 mCi of Tc-99 Myoview. Gated Stress Spect was performed 45 minutes after intravenous 29.0 mCi Tc-99 Myoview injection. The images were gated to evaluate regional wall motion and calculate ventricular ejection fraction.Images were reconstructed using backfilter projection method in short horizontal and verticle long axis. Spect slices were generated. RESTING DATA LXG825.59iyCU6.40L/min ESV35.00mlMyocardial Ydfk755.00g Av. Heart Rate58.00bpm EF68.00% STRESS DATA EDV96.76egGE8.30L/min ESV28.00mlMyocardial Vwsc544.00g EF71.00% Regional WT score at stress:3.00 Regional WM score at stress:0.00 Summed WT score at stress:13.00 Av. Heart Rate64.00bpmSummed WM score at stress:4.00 LV Perf. Quant 17 Seg. SSS2.00 17 Seg. SRS2.00 17 Seg. SDS0.00 Stress Defect Extent (% LAD)0.00Rest Defect Extent (% LAD)3.10Rev. Defect Extent (% LAD)0.00 Stress Defect Extent (% LCX)21.30Rest Defect Extent (% LCX)13.80Rev. Defect Extent (% LCX)10.00 Stress Defect Extent (% RCA)0.00Rest Defect Extent (% RCA)0.00Rev. Defect Extent (% RCA)0.00 Stress Defect Extent (% DIAZ)6.30Rest Defect Extent (% DIAZ)6.10Rev. Defect Extent (% DIAZ)2.20 IMPRESSION Normal Myocardial Perfusion exercise stress study Left Ventricle LV Size/Shape: The left ventricle is normal size. LV Function:Left ventricle systolic function is normal. The Ejection Fraction is >70%. Conclusion 1. Normal Lexiscan nuclear stress test. Normal EF
--- NOTE | 2017-12-24 19:48 | CP.PCM.PN ---
Subjective - Date & Time of Evaluation Date of Evaluation: 12/24/17 Time of Evaluation: 19:46 - Subjective Subjective: Patient stress test is normal Cardiac point of view cleared for discharge F/U Dr. Davis ([place]) for cardiology Objective - Vital Signs/Intake and Output Vital Signs (last 24 hours): Temp Pulse Resp BP Pulse Ox 98.2 F 61 20 132/83 96 12/24/17 16:00 12/24/17 16:00 12/24/17 16:00 12/24/17 16:00 12/24/17 16:00 - Medications Medications: Current Medications Albuterol (Ventolin Hfa 90 Mcg/Actuation (8 G)) 2 puff INH RQ4 PRN PRN Reason: Shortness of Breath Albuterol/Ipratropium (Duoneb 3 Mg/0.5 Mg (3 Ml) Ud) 3 ml INH RQ6 PRN PRN Reason: Shortness of Breath Last Admin: 12/24/17 19:39 Dose: 3 ml Allopurinol (Zyloprim) 300 mg PO DAILY [facility] Last Admin: 12/24/17 12:22 Dose: 300 mg Amlodipine Besylate (Norvasc) 5 mg PO DAILY [facility] Last Admin: 12/24/17 12:22 Dose: 5 mg Aspirin (Aspirin) 325 mg PO DAILY [facility] Last Admin: 12/24/17 12:22 Dose: 325 mg Atenolol (Tenormin) 100 mg PO DAILY [facility] Last Admin: 12/24/17 12:23 Dose: 100 mg Clopidogrel Bisulfate (Plavix) 75 mg PO DAILY [facility] Last Admin: 12/24/17 12:23 Dose: 75 mg Ezetimibe (Zetia) 10 mg PO DAILY [facility] Last Admin: 12/24/17 12:22 Dose: 10 mg Enoxaparin Sodium (Lovenox) 40 mg SC DAILY [facility] Last Admin: 12/24/17 12:23 Dose: 40 mg Gemfibrozil (Lopid) 600 mg PO DAILY [facility] Last Admin: 12/24/17 12:22 Dose: 600 mg Glipizide (Glucotrol Xl) 10 mg PO DAILY [facility] Last Admin: 12/24/17 12:23 Dose: 10 mg Insulin Aspart (Novolog) 0 unit SC [facility] PRN Reason: Protocol Last Admin: 03/21/18 16:27 Dose: Not Given Levothyroxine Sodium (Synthroid) 88 mcg PO DAILY@0630 [facility] Last Admin: 12/24/17 06:37 Dose: 88 mcg Loratadine (Claritin) 10 mg PO DAILY [facility] Last Admin: 12/24/17 12:23 Dose: 10 mg Losartan Potassium (Cozaar) 50 mg PO DAILY [facility] Last Admin: 12/24/17 12:23 Dose: 50 mg Metformin HCl (Glucophage) 1,000 mg PO BID [facility] Last Admin: 12/24/17 17:49 Dose: 1,000 mg Montelukast Sodium (Singulair) 10 mg PO HS [facility] Last Admin: 12/23/17 22:04 Dose: 10 mg Pantoprazole Sodium (Protonix Ec Tab) 40 mg PO DAILY [facility] Last Admin: 12/24/17 12:22 Dose: 40 mg Fluticasone/Salmeterol (Advair Diskus 500/50) 1 puff INH RQ12 [facility] Last Admin: 12/24/17 19:39 Dose: Not Given - Labs Labs: 12/24/17 07:14 12/24/17 07:14 PT 11.9 SECONDS (9.7-12.2) 12/22/17 19:05 INR 1.1 12/22/17 19:05 APTT 34 SECONDS (21-34) 12/22/17 19:05
[2017-12-25] MEDS: Levothyroxine 88 MCG TAB PO SCH (06:22)
[2017-12-25 07:21] LABS: BASO % 0.6 % (0.0-2.0); EOS # 0.3 K/uL (0.0-0.7); EOS % 3.6 % (0.0-4.0); LYMPH # 2.6 K/uL (1.0-4.3); LYMPH % 32.9 % (20.0-40.0); MEAN CELL VOLUME 86.7 fL (80.0-94.0); MEAN CORPUSCULAR HGB CONC 33.5 g/dL (33.0-37.0); MEAN PLATELET VOLUME 9.8 fL (7.2-11.7); MONO # 0.4 K/uL (0.0-0.8); MONO % 5.2 % (0.0-10.0); NEUT # 4.6 K/uL (1.8-7.0); NEUT % 57.7 % (50.0-75.0); RBC 4.13 Mil/uL (4.40-5.90); RED CELL DISTRIBUTION WIDTH 15.8 % (11.5-14.5)
[2017-12-25] MEDS: (Novolog) Insulin Aspart, Recombinant 100 u/ml 10 ml vial SC SCH ×2 (07:26→12:10)
[2017-12-25 07:41] LABS: ALBUMIN 3.3 g/dL (3.5-5.0); ALT/SGPT 26 U/L (21-72); AST/SGOT 35 U/L (17-59); BLOOD UREA NITROGEN 20 mg/dL (9-20); CALCIUM 8.7 mg/dl (8.6-10.4); GFR AFRICAN-AMERICAN > 60; GFR NON-AFRICAN AMERICAN > 60
--- NOTE | 2017-12-25 07:59 | CP.PCM.PN ---
Subjective - Date & Time of Evaluation Date of Evaluation: 12/25/17 Time of Evaluation: 10:00 - Subjective Subjective: PGY-[address] Gerardo Patient seen and examined at bedside. No acute events reported overnight. Patient states his chest pain and numbness resolved. Patient denies fever, chills, headache, shortness of breath, abdominal pain, urinary or bowel habit changes. Objective - Vital Signs/Intake and Output Vital Signs (last 24 hours): Temp Pulse Resp BP Pulse Ox 98.0 F 60 20 119/65 96 12/25/17 04:00 12/25/17 04:00 12/25/17 04:00 12/25/17 04:00 12/25/17 04:00 Intake and Output: 12/25/17 12/25/17 06:59 18:59 Intake Total 400 Balance 400 - Medications Medications: Current Medications Albuterol (Ventolin Hfa 90 Mcg/Actuation (8 G)) 2 puff INH RQ4 PRN PRN Reason: Shortness of Breath Albuterol/Ipratropium (Duoneb 3 Mg/0.5 Mg (3 Ml) Ud) 3 ml INH RQ6 PRN PRN Reason: Shortness of Breath Last Admin: 12/24/17 19:39 Dose: 3 ml Allopurinol (Zyloprim) 300 mg PO DAILY [facility] Last Admin: 12/24/17 12:22 Dose: 300 mg Amlodipine Besylate (Norvasc) 5 mg PO DAILY [facility] Last Admin: 12/24/17 12:22 Dose: 5 mg Aspirin (Aspirin) 325 mg PO DAILY [facility] Last Admin: 12/24/17 12:22 Dose: 325 mg Atenolol (Tenormin) 100 mg PO DAILY [facility] Last Admin: 12/24/17 12:23 Dose: 100 mg Clopidogrel Bisulfate (Plavix) 75 mg PO DAILY [facility] Last Admin: 12/24/17 12:23 Dose: 75 mg Ezetimibe (Zetia) 10 mg PO DAILY [facility] Last Admin: 12/24/17 12:22 Dose: 10 mg Enoxaparin Sodium (Lovenox) 40 mg SC DAILY [facility] Last Admin: 12/24/17 12:23 Dose: 40 mg Gemfibrozil (Lopid) 600 mg PO DAILY [facility] Last Admin: 12/24/17 12:22 Dose: 600 mg Glipizide (Glucotrol Xl) 10 mg PO DAILY [facility] Last Admin: 12/24/17 12:23 Dose: 10 mg Insulin Aspart (Novolog) 0 unit SC [facility] PRN Reason: Protocol Last Admin: 12/25/17 07:26 Dose: Not Given Levothyroxine Sodium (Synthroid) 88 mcg PO DAILY@0630 [facility] Last Admin: 12/25/17 06:22 Dose: 88 mcg Loratadine (Claritin) 10 mg PO DAILY [facility] Last Admin: 12/24/17 12:23 Dose: 10 mg Losartan Potassium (Cozaar) 50 mg PO DAILY [facility] Last Admin: 12/24/17 12:23 Dose: 50 mg Metformin HCl (Glucophage) 1,000 mg PO BID [facility] Last Admin: 12/24/17 17:49 Dose: 1,000 mg Montelukast Sodium (Singulair) 10 mg PO HS [facility] Last Admin: 12/24/17 22:00 Dose: 10 mg Pantoprazole Sodium (Protonix Ec Tab) 40 mg PO DAILY [facility] Last Admin: 12/24/17 12:22 Dose: 40 mg Fluticasone/Salmeterol (Advair Diskus 500/50) 1 puff INH RQ12 [facility] Last Admin: 12/24/17 19:39 Dose: Not Given - Labs Labs: 12/25/17 07:00 12/25/17 07:00 PT 11.9 SECONDS (9.7-12.2) 12/22/17 19:05 INR 1.1 12/22/17 19:05 APTT 34 SECONDS (21-34) 12/22/17 19:05 - Constitutional Appears: Well, No Acute Distress, Other (obese) - Head Exam Head Exam: ATRAUMATIC, NORMOCEPHALIC - Eye Exam Eye Exam: EOMI, Normal appearance - ENT Exam ENT Exam: Mucous Membranes Moist - Neck Exam Neck Exam: Full ROM, Normal Inspection. absent: Lymphadenopathy - Respiratory Exam Respiratory Exam: Clear to Ausculation Bilateral, NORMAL BREATHING PATTERN. absent: Respiratory Distress - Cardiovascular Exam Cardiovascular Exam: REGULAR RHYTHM, +S1, +S2. absent: Murmur - GI/Abdominal Exam GI & Abdominal Exam: Soft, Normal Bowel Sounds - Neurological Exam Neurological Exam: Alert, Awake, Oriented x3 - Psychiatric Exam Psychiatric exam: Normal Affect, Normal Mood - Skin Skin Exam: Dry, Warm Assessment and Plan - Assessment and Plan (Free Text) Assessment: Chest Pain Cardio consult place- Dr. Eddy- Recs appreciated Lexiscan nuclear stress test-normal Neuro Consult requested by Dr. Eddy for Dr. Matthew given risk factor of family hx of CVA Unable to perform MRI due to pt obese habitus-repeat CT head showed no acute infarct pending EEG and carotid doppler results Echo 01/2017- LVEF 70%, 12/23/17-normal LV systolic function and wall motion, mild pulmonary HTN Exercise stress 01/2017- pt unable to complete due to fatigue Holter monitor 01/2017- sinus rhythm Trops negative x3 EKG prelim reading is NSR; no acute ST changes- follow up official read CXR no acute changes ASA 325mg PO daily Atenolol 100mg PO daily Losartan 50mg PO daily Amlodipine 5mg PO daily Plavix 75mg PO daily HTN Atenolol 100mg PO daily Losartan 50mg PO daily Amlodipine 5mg PO daily Mixed dyslipidemia Zetia 10mg PO daily Gemfibrozil 600mg PO daily follow up lipid panel Diabetes Glipizide 10mg PO daily ISS metformin 1g PO BID A1C 6.4 Hypothyroidism levothyroxine 88mcg PO daily Follow up tsh/t4 Asthma Loratadine 10mg PO daily Singulair 10mg PO qhs PPX Lovenox 40mg SC daily Protonix 40mg PO daily Case discussed with Dr. Gerardo, patient medically stable to be discharged All management as per Dr. Gerardo
[2017-12-25] MEDS: Fluticasone-Salmeterol 500-50mcg Diskus INH SCH (08:08)
[2017-12-25 08:33] VITALS: BP 125/73; TEMP 97.8; O2SAT 98
[2017-12-25] MEDS: Enoxaparin 60 mg Syringe SC SCH (09:02)
[2017-12-25] MEDS: Pantoprazole 40 mg EC Tab PO SCH (09:10)
[2017-12-25] MEDS: GlipiZIDE 10 mg SR Tab PO SCH (09:13)
[2017-12-25 11:09] VITALS: PULSE 67
--- NOTE | 2017-12-25 11:28 | VASCLAB ---
PROCEDURE: HISTORY: Carotid stenosis COMPARISON: None available. TECHNIQUE: Grayscale and duplex Doppler evaluation of the cervical carotid and vertebral arteries were performed. The common carotid, carotid bifurcations and cervical Internal Carotid Artery (ICA) and proximal External Carotid Artery (ECA) were evaluated. The vertebral arteries were evaluated for gross patency and flow direction. Report prepared by Dilshad Jimenez, BS, RVT FINDINGS: RIGHT CAROTID ARTERIES: 1. Common Carotid Artery: No significant focal plaque formation of the right common carotid artery. Maximum Peak Systolic velocity: 117 cm/sec: End-diastolic velocity 22 cm/sec. 2. Carotid Bifurcation: plaque formation. Maximum Peak Systolic velocity: 91 cm/sec: End-diastolic velocity 22 cm/sec. 3. Internal Carotid Artery: Plaque description: 3.1. Proximal Segment: Peak systolic velocity 119 cm/sec: End-diastolic velocity 19 cm/sec - % stenosis 0-15% 3.2. Middle Segment: Peak systolic velocity 103 cm/sec: End-diastolic velocity 37 cm/sec - % stenosis 0-15% 3.3. Distal Segment: Peak systolic velocity 61 cm/sec: End-diastolic velocity 22 cm/sec - % stenosis 0-15% 4. External Carotid Artery: No significant focal plaque formation. Peak systolic velocity 124 cm/sec 5. ICA/CCA Ratio: 1.0 LEFT CAROTID ARTERIES: 1. Common Carotid Artery: No significant focal plaque formation of the left common carotid artery. Maximum Peak Systolic velocity: 131 cm/sec: End-diastolic velocity 24 cm/sec. 2. Carotid Bifurcation: plaque formation. Maximum Peak Systolic velocity: 117 cm/sec: End-diastolic velocity 22 cm/sec. 3. Internal Carotid Artery: Plaque description: 3.1. Proximal Segment: Peak systolic velocity 73 cm/sec: End-diastolic velocity 20 cm/sec - % stenosis 0-15% 3.2. Middle Segment: Peak systolic velocity 102 cm/sec: End-diastolic velocity 37 cm/sec - % stenosis 0-15% 3.3. Distal Segment: Peak systolic velocity 111 cm/sec: End-diastolic velocity 38 cm/sec - % stenosis 0-15% 4. External Carotid Artery: No significant focal plaque formation. Peak systolic velocity 142 cm/sec 5. ICA/CCA Ratio: 0.9 VERTEBRAL ARTERIES: 1. Right Vertebral Artery: The right vertebral artery flow direction is antegrade. 2. Left Vertebral Artery: The left vertebral artery flow direction is antegrade. OTHER FINDINGS: 1. Right Brachial Blood pressure: 142 mmHg. 2. Left Brachial Blood pressure: 140 mmHg. IMPRESSION: RIGHT: Duplex scan does not suggest hemodynamically significant stenosis of the right extracranial carotid arteries. LEFT: Duplex scan does not suggest hemodynamically significant stenosis of the left extracranial carotid arteries.
--- NOTE | 2017-12-25 11:30 | PN ---
DATE: 12/25/2017. TIME OF EVALUATION: 06:40 a.m. NEUROLOGICAL PROBLEM: Transient ischemic attack affecting his right cerebral cortex. Cerebral cortex versus subcortical dysfunction. PHYSICAL EXAMINATION: VITAL SIGNS: Blood pressure 119/65, mean arterial pressure of 83, respiratory rate 16, temperature afebrile. NEUROLOGIC: The patient is awake, alert, watching TV. Claims most of the symptoms are gone except left arm still he feels something different and numbness. He denies any lower extremity weakness or swelling at present. He is ambulatory on his own. Speech is normal. Examination is unchanged compared with my previous exam. WORKUP: MRI was not done due to his physic. He had a repeat CAT scan of the head which does not show any acute ischemic changes. His cardiac workup is normal. Blood workup all seems to be normal. Continue his medications for his stroke. The patient should continue diabetic medications and weight control have been discussed with the patient. The patient is neurologically cleared, he can be discharged if medically stable and advised to see me as outpatient for further workup including MRI of the brain and lumbosacral spine for his chronic lower back pain as well as polysomnogram to rule in or rule out hidden sleep related breathing disorders. Cristóbal Rodas MD
--- NOTE | 2017-12-26 22:48 | CARD ---
APPROVED REPORT EKG Measurement Heart [id number] [place] [id number] [id number] <Conclusion> Normal sinus rhythm Normal ECG
== END 2017-12-25 13:24 | disposition home or self-care (01) | DRG 832 ==
LOC: C.ER 18:47 → C.9E 20:47 → C.6T 21:19 → OBSVTOIN 12-24 16:00
PROVIDERS: ADMIT Internal Medicine Pulmonary Disease; ATTEND Internal Medicine Pulmonary Disease
DX: G45.9 Transient cerebral ischemic attack, unspecified (principal); R07.89 Other chest pain; E11.42 Type 2 diabetes mellitus with diabetic polyneuropathy; I27.20 Pulmonary hypertension, unspecified; J44.9 Chronic obstructive pulmonary disease, unspecified; I10 Essential (primary) hypertension; I25.10 Atherosclerotic heart disease of native coronary artery without angina pectoris; E03.9 Hypothyroidism, unspecified; E78.2 Mixed hyperlipidemia; G89.29 Other chronic pain; Z95.5 Presence of coronary angioplasty implant and graft; Z79.82 Long term (current) use of aspirin; Z79.4 Long term (current) use of insulin